=== PATIENT | female | born 1960 | race Caucasian/White ===

== ENCOUNTER 2016-12-24 18:47 | Emergency (ER) | payer BC ==
[~2016-12-24] VITALS: Ht 162.6 cm; Wt 84.1 kg
[2016-12-24 18:55] VITALS: TEMP 97.9
[2016-12-24 19:41] VITALS: BP 134/81; PULSE 66
== END 2016-12-24 19:41 | disposition home or self-care (01) ==
LOC: COL.ER 18:47
DX: M23.92 Unspecified internal derangement of left knee (principal)
CPT/HCPCS: L1830

== ENCOUNTER 2021-07-24 08:42 | Emergency (ER) | payer BC ==
[~2021-07-24] VITALS: Ht 162.6 cm; Wt 86.4 kg
[2021-07-24 08:49] VITALS: BP 139/82
[2021-07-24] MEDS ORDERED: NORCO 325 MG-51 TAB PO (09:10)
[2021-07-24] MEDS ORDERED: MOBIC15 MG PO (09:10)
[2021-07-24 09:35] VITALS: PULSE 60
== END 2021-07-24 09:35 | disposition home or self-care (01) ==
LOC: COL.ER 08:42
DX: S83.241A Other tear of medial meniscus, current injury, right knee, initial encounter (principal); X50.0XXA Overexertion from strenuous movement or load, initial encounter; Y93.A1 Activity, exercise machines primarily for cardiorespiratory conditioning